=== PATIENT | female | born 1970 | race Caucasian/White ===

== ENCOUNTER 2019-01-16 19:51 | Emergency (ER) | payer BC, OTHER ==
--- NOTE | 2019-01-16 20:44 | EDM.PDOC ---
ED HPI GENERAL MEDICAL PROBLEM - General Chief Complaint: Lower Extremity Injury/Pain Stated Complaint: INJURED RIGHT FOOT Time Seen by Provider: 01/16/19 20:36 Source of Information: Reports: Patient History Limitations: Reports: No Limitations - History of Present Illness INITIAL COMMENTS - FREE TEXT/NARRATIVE: Patient is a 48-year-old female who presents to the emergency Department this evening with a complaint of right ankle and foot pain. Patient states approximately 2 p.m. 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 Patient states she did not fall from standing position. Discomfort was minimal , so she continued to work. However, when the patient returned home, she took off her support stockings and noticed edema as well as pain to right ankle. Patient denies any other injury. Onset: Today Onset Date: 01/16/19 Onset Time: 14:00 Duration: Hour(s): Location: Reports: Lower Extremity, Right Quality: Reports: Ache Severity: Mild Improves with: Reports: None Worsens with: Reports: Movement Context: Reports: Trauma Associated Symptoms: Reports: No Other Symptoms right foot/ankle Pain Score (Numeric/FACES): 7 - Related Data Allergies Allergy/AdvReac Type Severity Reaction Status Date / Time acetaminophen [From Vicodin] Allergy Rash Verified 01/16/19 20:16 bee venom protein (honey bee) Allergy Airway Verified 01/16/19 20:16 Tightness cephalexin [From Keflex] Allergy Rash Verified 01/16/19 20:16 hydrocodone [From Vicodin] Allergy Rash Verified 01/16/19 20:16 Sulfa (Sulfonamide Allergy Rash Verified 01/16/19 20:16 Antibiotics) tree nut Allergy Airway Verified 01/16/19 20:16 Tightness Home Meds: Home Meds Biotin/Calcium Carbonate [Biotin 800 MCG] 1 each PO DAILY 01/16/19 [History] Cholecalciferol (Vitamin D3) [Vitamin D] 5,000 unit PO DAILY 01/16/19 [History] Docusate Sodium [Colace] 100 mg PO DAILY 01/16/19 [History] Loratadine [Claritin] 10 mg PO DAILY 01/16/19 [History] Multivitamin [Multivitamins] 1 each PO DAILY 01/16/19 [History] [place]-3/DHA/Epa/Fish Oil [[place]-3 Fish Oil 1,000 MG Sfgl] 1,000 mg PO DAILY [History] Rosuvastatin [Crestor] 10 mg PO DAILY 01/16/19 [History] Past Medical History HEENT History: Reports: Impaired Vision Respiratory History: Reports: Asthma, Other (See Below) Other Respiratory History: Smoker Gastrointestinal History: Reports: Chronic Constipation, GERD, Other (See Below) Other Gastrointestinal History: Diverticulitis 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, Neurological History: Reports: Migraines Endocrine/Metabolic History: Reports: Vitamin D Deficiency - Infectious Disease History Infectious Disease History: Reports: Chicken Pox - Past Surgical History HEENT Surgical History: Reports: Adenoidectomy, Oral Surgery, Tonsillectomy GI Surgical History: Reports: Appendectomy, Colonoscopy Social & Family History - Family History Family Medical History: Noncontributory - Tobacco Use Smoking Status *Q: Current Every Day Smoker Years of Tobacco use: 34 Packs/Tins Daily: 0.5 Second Hand Smoke Exposure: No - Caffeine Use Caffeine Use: Reports: Coffee, Tea - Recreational Drug Use Recreational Drug Use: No Review of Systems - Review of Systems Review Of Systems: ROS reveals no pertinent complaints other than HPI. Constitutional: Reports: No Symptoms Eyes: Reports: No Symptoms Ears: Reports: No Symptoms Nose: Reports: No Symptoms Mouth/Throat: Reports: No Symptoms Respiratory: Reports: No Symptoms Cardiovascular: Reports: No Symptoms GI/Abdominal: Reports: No Symptoms Genitourinary: Reports: No Symptoms Musculoskeletal: Reports: Leg Pain, Foot Pain (Right) Skin: Reports: No Symptoms Neurological: Reports: No Symptoms Psychiatric: Reports: No Symptoms ED EXAM, GENERAL - Physical Exam Exam: See Below Exam Limited By: No Limitations General Appearance: Alert, WD/WN, No Apparent Distress Throat/Mouth: Normal Inspection, Normal Oropharynx, No Airway Compromise Respiratory/Chest: No Respiratory Distress Back Exam: Normal Inspection Extremities: Other (Right ankle, lateral aspect. Mild tenderness with range of motion, no ligament laxity, no deformity, ecchymosis, erythema, or edema of the ankle or foot.) Neurological: Alert, Oriented, Normal Cognition Psychiatric: Normal Affect, Normal Mood Skin Exam: Warm, Dry, Intact, Normal Color, No Rash Course - Vital Signs Last Recorded V/S: Last Vital Signs Temp 98 F 01/16/19 19:55 Pulse 90 06/29/19 19:55 Resp 16 01/16/19 19:55 BP 151/81 H 01/16/19 19:55 Pulse Ox 95 01/16/19 19:55 - Orders/Labs/Meds Orders: Active Orders 24 hr Category Date Time Status Ankle Min 3V Rt [CR] Stat Exams 01/16/19 19:56 Ordered Foot Comp Min 3V Rt [CR] Stat Exams 01/16/19 19:56 Ordered - Radiology Interpretation Free Text/Narrative:: X-ray of ankle and foot shows no acute fracture or dislocation - Re-Assessments/Exams Free Text/Narrative Re-Assessment/Exam: 01/16/19 20:44 Patient afebrile, nontoxic appearing, vital signs stable. Eligio bandage applied. Rice instructions given Departure - Departure Time of Disposition: 20:44 Disposition: Home, Self-Care 01 Condition: Good Clinical Impression: Ankle sprain Qualifiers: Encounter type: initial encounter Involved ligament of ankle: unspecified ligament Laterality: right Qualified Code(s): S93.401A - Sprain of unspecified ligament of right ankle, initial encounter - Discharge Information Instructions: Ankle Sprain, [id number], RICE Therapy for Routine Care of Injuries, [id number] Referrals: PCP,Not In Area [Primary Care Provider] - Additional Instructions: Follow-up with PCP in to 3 days for recheck. Return to emergency room and sooner if symptoms continue or worsen. - My Orders Last 24 Hours: My Active Orders 01/16/19 19:56 Ankle Min 3V Rt [CR] Stat Foot Comp Min 3V Rt [CR] Stat - Assessment/Plan Last 24 Hours: My Active Orders 01/16/19 19:56 Ankle Min 3V Rt [CR] Stat Foot Comp Min 3V Rt [CR] Stat Assessment:: Ankle sprain Plan: Follow-up with PCP
--- NOTE | 2019-01-17 12:18 | CR ---
[id number] RAD/RAD Foot Right 3V Min EXAM: RIGHT FOOT 3 VIEWS INDICATION: Fall with twisting injury and pain in the distal metatarsal region. COMPARISON: None. DISCUSSION: Mild first metatarsophalangeal osteoarthritis. Metallic ring third toe. No acute fracture or dislocation is identified. IMPRESSION: 1. No acute findings. Jamar Boo MD 01/17/19 [id number] Thank you for allowing us to participate in the care of your patient.
--- NOTE | 2019-01-17 12:20 | CR ---
[id number] RAD/RAD Ankle Right 3V Min EXAM: RIGHT ANKLE 3 VIEWS INDICATION: Fall with twisting injury. COMPARISON: None. DISCUSSION: No fracture, dislocation or other osseous abnormality. IMPRESSION: 1. Negative exam. Jamar Boo MD 01/17/19 [id number] Thank you for allowing us to participate in the care of your patient.
== END 2019-01-16 20:50 | disposition home or self-care (01) ==
LOC: KA.ED 19:51
DX: S93.401A Sprain of unspecified ligament of right ankle, initial encounter (principal); F17.210 Nicotine dependence, cigarettes, uncomplicated; K21.9 Gastro-esophageal reflux disease without esophagitis; Z79.899 Other long term (current) drug therapy; Z88.1 Allergy status to other antibiotic agents; Z91.018 Allergy to other foods; X50.9XXA Other and unspecified overexertion or strenuous movements or postures, initial encounter; Y92.481 Parking lot as the place of occurrence of the external cause
CPT/HCPCS: 73610-RT; 73630-RT; 99283-25

== ENCOUNTER 2019-06-10 15:17 | Emergency (ER) | payer BC, OTHER ==
[2019-06-10] MEDS ORDERED: predniSONE 20 MG Tab PO ONE (15:24)
[2019-06-10] MEDS ORDERED: diphenhydrAMINE 25 MG Cap PO ONE (15:25)
[2019-06-10] MEDS ORDERED: Famotidine 20 MG Tab PO ONE ×2 (15:25→15:42)
--- NOTE | 2019-06-10 15:57 | EDM.PDOC ---
ED HPI GENERAL MEDICAL PROBLEM - General Chief Complaint: General Stated Complaint: possible allergic reaction Time Seen by Provider: 06/10/19 15:50 Source of Information: Reports: Patient History Limitations: Reports: No Limitations - History of Present Illness INITIAL COMMENTS - FREE TEXT/NARRATIVE: Patient is a 49-year-old female who presents to the emergency department this afternoon with a complaint of rash. 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 Rash is just on the right forearm. Patient states similar symptoms happened 1 week ago but at that time both upper extremities had rash. It resolved spontaneously. Patient denies rash anywhere else on her body, wheezing, tongue `or lip edema. Onset: Sudden Onset Date: 06/10/19 Onset Time: 14:15 Duration: Hour(s): Location: Reports: Upper Extremity, Right Quality: Reports: Other (Itching) Severity: Mild Improves with: Reports: None Worsens with: Reports: None Context: Reports: Activity Right Arm Pain Score (Numeric/FACES): 8 - Related Data Allergies Allergy/AdvReac Type Severity Reaction Status Date / Time acetaminophen [From Vicodin] Allergy Rash Verified 01/16/19 20:16 bee venom protein (honey bee) Allergy Airway Verified 01/16/19 20:16 Tightness cephalexin [From Keflex] Allergy Rash Verified 01/16/19 20:16 hydrocodone [From Vicodin] Allergy Rash Verified 01/16/19 20:16 Sulfa (Sulfonamide Allergy Rash Verified 01/16/19 20:16 Antibiotics) tramadol Allergy Itching Verified 06/10/19 15:24 tree nut Allergy Airway Verified 01/16/19 20:16 Tightness Home Meds: Home Meds Biotin/Calcium Carbonate [Biotin 800 MCG] 1 each PO DAILY 01/16/19 [History] Cholecalciferol (Vitamin D3) [Vitamin D] 5,000 unit PO DAILY 01/16/19 [History] Docusate Sodium [Colace] 100 mg PO DAILY 01/16/19 [History] Loratadine [Claritin] 10 mg PO DAILY 01/16/19 [History] Multivitamin [Multivitamins] 1 each PO DAILY 01/16/19 [History] [place]-3/DHA/Epa/Fish Oil [[place]-3 Fish Oil 1,000 MG Sfgl] 1,000 mg PO DAILY [History] Rosuvastatin [Crestor] 10 mg PO DAILY 01/16/19 [History] Famotidine 20 mg PO BID 06/10/19 [History] Past Medical History HEENT History: Reports: Impaired Vision Respiratory History: Reports: Asthma, Other (See Below) Other Respiratory History: Smoker Gastrointestinal History: Reports: Chronic Constipation, GERD, Other (See Below) Other Gastrointestinal History: Diverticulitis 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, Neurological History: Reports: Migraines Endocrine/Metabolic History: Reports: Vitamin D Deficiency - Infectious Disease History Infectious Disease History: Reports: Chicken Pox - Past Surgical History HEENT Surgical History: Reports: Adenoidectomy, Oral Surgery, Tonsillectomy GI Surgical History: Reports: Appendectomy, Colonoscopy Social & Family History - Family History Family Medical History: Noncontributory - Tobacco Use Smoking Status *Q: Current Every Day Smoker Years of Tobacco use: 35 Packs/Tins Daily: 0.5 - Caffeine Use Caffeine Use: Reports: Coffee, Tea - Recreational Drug Use Recreational Drug Use: No ED ROS GENERAL - Review of Systems Review Of Systems: Comprehensive ROS is negative, except as noted in HPI. Constitutional: Reports: No Symptoms HEENT: Reports: No Symptoms Respiratory: Reports: No Symptoms. Denies: Wheezing Cardiovascular: Reports: No Symptoms Endocrine: Reports: No Symptoms GI/Abdominal: Reports: No Symptoms : Reports: No Symptoms Musculoskeletal: Reports: No Symptoms Skin: Reports: Rash Neurological: Reports: No Symptoms Psychiatric: Reports: No Symptoms Hematologic/Lymphatic: Reports: No Symptoms Immunologic: Reports: No Symptoms ED EXAM, GENERAL - Physical Exam Exam: See Below Exam Limited By: No Limitations General Appearance: Alert, WD/WN, No Apparent Distress Eye Exam: Bilateral Eye: Conjunctival Injection Nose: Normal Inspection Throat/Mouth: Normal Inspection, Normal Oropharynx, No Airway Compromise. No: Inflammation Neck: Normal Inspection Respiratory/Chest: No Respiratory Distress, Lungs Clear, Normal Breath Sounds, No Accessory Muscle Use, Chest Non-Tender Cardiovascular: Regular Rate, Rhythm, No Murmur Extremities: Normal Inspection Neurological: Alert, Oriented, Normal Cognition Psychiatric: Normal Affect, Normal Mood Skin Exam: Warm, Dry, Intact, Normal Color, Rash (Faint erythematous macular papillar rash from hand proximal to elbow. Does not extend further.) Lymphatic: No Adenopathy Course - Vital Signs Last Recorded V/S: Last Vital Signs Temp 97.6 F 06/10/19 15:20 Pulse 78 06/10/19 15:48 Resp 20 06/10/19 15:48 BP 137/74 06/10/19 15:48 Pulse Ox 98 06/10/19 15:48 - Orders/Labs/Meds Meds: Medications Discontinued Medications Generic Name Dose Route Start Last Admin Trade Name Kaden PRN Reason Stop Dose Admin Diphenhydramine HCl 50 mg 06/10/19 15:25 06/10/19 15:33 Benadryl PO 06/10/19 15:26 50 mg ONETIME ONE Administration Famotidine 40 mg 06/10/19 15:25 06/10/19 15:45 Pepcid PO 06/10/19 15:26 Not Given ONETIME ONE Famotidine 20 mg 06/10/19 15:42 06/10/19 15:45 Pepcid PO 06/10/19 15:43 20 mg ONETIME ONE Administration Prednisone 60 mg 06/10/19 15:24 06/10/19 15:33 Prednisone PO 06/10/19 15:25 60 mg ONETIME ONE Administration - Re-Assessments/Exams Free Text/Narrative Re-Assessment/Exam: 06/10/19 16:22 Patient afebrile, vital signs stable, bilateral breath sounds clear, rash resolved. Departure - Departure Time of Disposition: 16:21 Disposition: Home, Self-Care 01 Condition: Good Clinical Impression: Rash due to allergy Allergic reaction Qualifiers: Encounter type: initial encounter Qualified Code(s): T78.40XA - Allergy, unspecified, initial encounter - Discharge Information Instructions: Allergies, Adult, [id number], Allergy Skin Testing Referrals: Stephanie Mendoza MD [Primary Care Provider] - - Assessment/Plan Assessment:: Allergic reaction Plan: Follow-up with PCP
== END 2019-06-10 16:35 | disposition home or self-care (01) ==
LOC: KA.ED 15:17
DX: T78.40XA Allergy, unspecified, initial encounter (principal); K21.9 Gastro-esophageal reflux disease without esophagitis; F17.210 Nicotine dependence, cigarettes, uncomplicated; Z91.030 Bee allergy status; Z88.1 Allergy status to other antibiotic agents; Z88.2 Allergy status to sulfonamides; Z91.018 Allergy to other foods; Z88.6 Allergy status to analgesic agent; Z88.5 Allergy status to narcotic agent; Z79.899 Other long term (current) drug therapy
CPT/HCPCS: 99282; A9270